=== PATIENT | male | born 1950 | race Caucasian/White ===

== ENCOUNTER 2016-12-20 04:12 | Emergency (ER) | payer BC, OTHER ==
[2016-12-20 04:23] VITALS: BP 148/82; PULSE 93; TEMP 97.8; BMI 30.4
--- NOTE | 2016-12-20 04:43 | PDOC ---
History of Present Illness - General History Source: Patient, Spouse <Amari Collier - Last Filed: 12/20/16 05:08> - General History Source: Patient, Spouse Exam Limitations: Intoxication - History of Present Illness Initial Comments: 12/20/16 04:51 The patient is a 66 year old male, with no significant past medical history, who presents to the emergency department s/p falling out of bed earlier this evening. As per , the patient had a multiple drinks this evening and went to bed inebriated. The reports the patient was sleeping, fell out of bed, and hit his head. The patient himself does not report any head trauma or LOC. The patient denies any fever, chills, cough, headache, or dizziness. The patient denies any nausea, vomiting, diarrhea, constipation, or changes in urinary output. The patient denies any chest pain, diaphoresis, palpitations, or shortness of breath. Allergies: None reported. Past Surgical History: None reported. Social History: ETOH abuse. Non-smoker. Denies drug use. <Guevara Martinez - Last Filed: 12/20/16 05:14> - General Chief Complaint: Injury Stated Complaint: INTOX Time Seen by Provider: 12/20/16 04:42 Past History - Surgical History Cholecystectomy: Yes - Psycho/Social/Smoking Cessation Hx Suicidal Ideation: No Smoking History: Unknown if ever smoked Information on smoking cessation initiated: No Hx Alcohol Use: Yes Drug/Substance Use Hx: No <Amari Collier - Last Filed: 12/20/16 05:08> <Guevara Martinez - Last Filed: 12/20/16 05:14> - Past Medical History Allergies/Adverse Reactions: Allergies Allergy/AdvReac Type Severity Reaction Status Date / Time No Known Allergies Allergy Verified 12/20/16 04:21 Home Medications: Ambulatory Orders Benzonatate [Tessalon Pearls -] 100 mg PO TID 12/20/16 Hydrochlorothiazide [Hctz -] 25 mg PO DAILY 12/20/16 Review of Systems - Review of Systems Able to Perform ROS?: Yes Comments:: 12/20/16 04:51 CONSTITUTIONAL: Present:+ETOH intoxication Absent: fever, no chills, no fatigue EYES: Absent: visual changes ENT: Absent: ear pain, no sore throat CARDIOVASCULAR: Absent: chest pain, no palpitations RESPIRATORY: Absent: cough, no SOB GI: Absent: abdominal pain, no nausea, no vomiting, no constipation, no diarrhea GENITOURINARY: Absent: dysuria, no frequency, no hematuria MUSKULOSKELETAL: Absent: back pain, no arthralgia, no myalgia SKIN: Absent: rash NEURO: Absent: headache <Guevara Martinez - Last Filed: 12/20/16 05:14> *Physical Exam - Vital Signs Last Vital Signs Temp Pulse Resp BP Pulse Ox 97.8 F 93 H 14 148/82 94 L 12/20/16 04:21 12/20/16 04:21 12/20/16 04:21 12/20/16 04:21 12/20/16 04:21 <Amari Collier - Last Filed: 12/20/16 05:08> - Vital Signs Last Vital Signs Temp Pulse Resp BP Pulse Ox 97.8 F 93 H 14 148/82 94 L 12/20/16 04:21 12/20/16 04:21 12/20/16 04:21 12/20/16 04:21 12/20/16 04:21 - Physical Exam Comments: 12/20/16 04:53 GENERAL: Well-appearing, well-nourished. No apparent distress. Inebriated. HEENT: Normocephalic, atraumatic. PERRL, EOM intact. CARDIOVASCULAR: Normal S1, S2. Regular rate and rhythm. PULMONARY: Clear to auscultation bilaterally. ABDOMEN: Soft, non-distended, non-tender. EXTREMITIES: Normal ROM in all four extremities. No gross deformities. SKIN: Warm, dry. No rash NEUROLOGICAL: No focal neurological deficits. <Guevara Martinez - Last Filed: 12/20/16 05:14> ED Treatment Course - RADIOLOGY Radiology Studies Ordered: Category Date Time Status HEAD CT WITHOUT CONTRAST [CT] Stat CT Scan 12/20/16 04:41 Ordered <Amari Collier - Last Filed: 12/20/16 05:08> - RADIOLOGY Radiograph Interpretation: 12/20/16 05:13 EXAM: Head CT INTERPRETED BY: Dr. Sanabria REVIEWED BY: Dr. Collier IMPRESSION: No evidence of acute pathology. <Guevara Martinez - Last Filed: 12/20/16 05:14> Medical Decision Making - Medical Decision Making 12/20/16 05:04 Dr. Collier: The scribe's documentation has been prepared under my direction and personally reviewed by me in its entirery. I confirm that the note above accurately reflects all work, treatment, procedures, and medical decision making performed by me. <Amari Collier - Last Filed: 12/20/16 05:08> *DC/Admit/Observation/Transfer - Discharge Dispostion Admit: No <Amari Collier - Last Filed: 12/20/16 05:08> - Attestations Scribe Attestion: 12/20/16 04:54 Documentation prepared by Guevara Martinez, acting as medical insurance coder for Amari Collier DO. <Guevara Martinez - Last Filed: 12/20/16 05:14> Diagnosis at time of Disposition: Closed head injury Qualifiers: Encounter type: initial encounter Qualified Code(s): S09.90XA - Unspecified injury of head, initial encounter - Discharge Dispostion Disposition: HOME Condition at time of disposition: Stable - Patient Instructions Printed Discharge Instructions: DI for Closed Head Injury
== END 2016-12-20 05:15 | disposition home or self-care (01) ==
LOC: JER 04:12
DX: S09.90XA Unspecified injury of head, initial encounter (principal); W06.XXXA Fall from bed, initial encounter; Y93.89 Activity, other specified; Y92.003 Bedroom of unspecified non-institutional (private) residence as the place of occurrence of the external cause
CPT/HCPCS: 70450-TC; 99281-25

== ENCOUNTER 2022-07-07 22:03 | Inpatient (IN) | payer OTHER ==
[2022-07-07] MEDS ORDERED: SODIUM CHLORIDE 2,585 ML IV ONE (22:38)
[2022-07-07] MEDS ORDERED: ACETAMINOPHEN 1000 MG/100 ML BAG IVPB ONE (22:39)
[2022-07-07] MEDS ORDERED: SODIUM CHLORIDE 1,000 ML IV STA (23:17)
[2022-07-07] MEDS ORDERED: ACETAMINOPHEN INJECTION 100 ML IVPB ONE (23:38)
[2022-07-08] LABS: VENOUS BASE EXCESS 2.5 mmol/L (-2-2); VENOUS O2 SATURATION 75.7 % (70-80); VENOUS PCO2 36.4 mmHg (38-52); VENOUS PH 7.47 (7.310-7.410)
[2022-07-08 00:02] LABS: HEMATOCRIT 41.4 % (35.4-49); HEMOGLOBIN 14.2 GM/dL (11.7-16.9); MCH 31.2 pg (25.7-33.7); MCHC 34.2 g/dl (32.0-35.9); MEAN CELL VOLUME 91.1 fl (80-96); PLATELET COUNT 140 10^3/uL (134-434); RBC 4.54 M/mm3 (4.00-5.60); WHITE BLOOD COUNT 6.8 K/mm3 (4.0-10.0)
[2022-07-08 00:22] LABS: ALBUMIN 3.1 g/dl (3.4-5.0); BLOOD UREA NITROGEN 21.7 mg/dL (7-18); CALCIUM 8.1 mg/dL (8.5-10.1)
[2022-07-08 00:25] LABS: CREATININE 1.1 mg/dL (0.55-1.3)
[2022-07-08 00:27] LABS: BILIRUBIN,TOTAL 2.4 mg/dL (0.2-1); INR 1.22 (0.83-1.09); PROTHROMBIN TIME (PATIENT) 14.1 SEC (9.7-13.0); TOT PROT 6.4 g/dl (6.4-8.2)
[2022-07-08 00:29] LABS: ACTIVATED PTT 27.1 SECONDS (25.2-36.5)
[2022-07-08] MEDS ORDERED: VANCOMYCIN/WATER 2 GM/400 ML PREMIX BAG IVPB ONE (00:55)
[2022-07-08] MEDS ORDERED: PIPERACILLIN/TAZOB 4.5 GM 4.5 GM in DEXTROSE 5%-WATER 100 ML IVPB ONE (00:55)
[2022-07-08] MEDS ORDERED: PIPERACILLIN/TAZOB 4.5 GM 4.5 GM/100 ML BAG IVPB ONE ×3 (01:13→14:10)
[2022-07-08 01:32] LABS: ANISOCYTOSIS 2+; MACROCYTOSIS 0; OVALOCYTE 1+; TEAR DROP CELLS 1+; TOXIC GRANULATION 1+
[2022-07-08] MEDS: KCL 10 MEQ IVPB 10 MEQ/100 ML INFUS.BAG IVPB SCH ×3 (05:00→10:00)
[2022-07-08 05:08] LABS: EPI CELLS 17 /uL (0-25.1); HYALINE CASTS 1 /uL (0-3.1); PH,URINE 5.5 (5.0-8.0); URINE APPEARANCE CLEAR; URINE BACTERIA 88 /uL (0-1359); URINE BILIRUBIN 1+ (NEGATIVE); URINE COLOR DK YELLOW; URINE GLUCOSE (UA) NEGATIVE (NEGATIVE); URINE KETONE NEGATIVE (NEGATIVE); URINE LEUK ESTERASE NEGATIVE (NEGATIVE); URINE NITRITE NEGATIVE (NEGATIVE); URINE PROTEIN 2+ (NEGATIVE); URINE RBC 38 /uL (0-23.9); URINE UROBILINOGEN 4.0 E.U/dl mg/dL (0.2-1.0); URINE WBC 28 /uL (0-25.8)
[2022-07-08] MEDS ORDERED: SODIUM CHLORIDE 0.9% 1000 ML INFUS.BAG IV ONE (05:22)
[2022-07-08] MEDS ORDERED: KCL 10 MEQ IVPB 20 MEQ/200 ML INFUS.BAG IVPB ONE (05:27)
[2022-07-08] MEDS: PIPERACILLIN/TAZOB 4.5 GM 4.5 GM in DEXTROSE 5%-WATER 100 ML IVPB SCH ×2 (10:00→14:09)
[2022-07-08] MEDS ORDERED: DEXTROSE 5%-0.45% SALINE 1,000 ML IV SCH (10:00)
[2022-07-08] MEDS ORDERED: ENOXAPARIN NA (PORCINE) 40 MG/0.4 ML DISP.SYRIN SQ SCH (10:00)
[2022-07-08] MEDS ORDERED: PANTOPRAZOLE SODIUM 40 MG/100 ML BAG IVPB ONE (10:23)
[2022-07-08] MEDS ORDERED: ENOXAPARIN NA (PORCINE) 40 MG/0.4 ML DISP.SYRIN SQ ONE (10:23)
[2022-07-08] MEDS: DEXTROSE 5%-NORMAL SALINE 1,000 ML IV SCH (10:57)
[2022-07-08] MEDS: PANTOPRAZOLE 40 MG TABLET PO SCH (10:57)
[2022-07-08 12:46] LABS: BASO % 0.1 % (0-2.0); EOS % 0.1 % (0-4.5); HEMATOCRIT 39.3 % (35.4-49); HEMOGLOBIN 13.1 GM/dL (11.7-16.9); LYMPH % 4.3 % (8-40); MCH 31.1 pg (25.7-33.7); MCHC 33.3 g/dl (32.0-35.9); MEAN CELL VOLUME 93.4 fl (80-96); MEAN PLT VOLUME 8.6 fl (7.5-11.1); MONO % 9.8 % (3.8-10.2); NEUT % 85.7 % (42.8-82.8); PLATELET COUNT 132 10^3/uL (134-434); RBC 4.21 M/mm3 (4.00-5.60); RDW 12.8 % (11.9-15.9); WHITE BLOOD COUNT 9.6 K/mm3 (4.0-10.0)
[2022-07-08 12:49] LABS: INR 1.36 (0.83-1.09); PROTHROMBIN TIME (PATIENT) 15.7 SEC (9.7-13.0)
[2022-07-08 13:07] LABS: ALBUMIN 2.7 g/dl (3.4-5.0); BLOOD UREA NITROGEN 17.2 mg/dL (7-18); CALCIUM 7.6 mg/dL (8.5-10.1)
[2022-07-08 13:09] LABS: BILIRUBIN,TOTAL 2.9 mg/dL (0.2-1); TOT PROT 5.7 g/dl (6.4-8.2)
[2022-07-08] MEDS: INSULIN SLIDING SCALE (NOVOLOG) 1 VIAL SQ SCH ×2 (17:59→21:33)
[2022-07-08] MEDS: PIPERACILLIN/TAZOB 3.375 GM 3.375 GM in DEXTROSE 5%-WATER - 50 ML IVPB SCH (21:17)
[2022-07-09 01:37] VITALS: BMI 28.7
[2022-07-09] MEDS: PIPERACILLIN/TAZOB 3.375 GM 3.375 GM in DEXTROSE 5%-WATER - 50 ML IVPB SCH ×4 (02:27→20:56)
[2022-07-09] MEDS: DEXTROSE 5%-NORMAL SALINE 1,000 ML IV SCH (02:27)
[2022-07-09 07:48] LABS: BASO % 0.2 % (0-2.0); EOS % 0.4 % (0-4.5); HEMATOCRIT 37.9 % (35.4-49); HEMOGLOBIN 12.9 GM/dL (11.7-16.9); LYMPH % 7.4 % (8-40); MCH 31.3 pg (25.7-33.7); MCHC 33.9 g/dl (32.0-35.9); MEAN CELL VOLUME 92.3 fl (80-96); MEAN PLT VOLUME 8.6 fl (7.5-11.1); MONO % 10.4 % (3.8-10.2); NEUT % 81.6 % (42.8-82.8); PLATELET COUNT 146 10^3/uL (134-434); RBC 4.11 M/mm3 (4.00-5.60); RDW 12.9 % (11.9-15.9); WHITE BLOOD COUNT 7.5 K/mm3 (4.0-10.0)
[2022-07-09] MEDS ORDERED: PHYTONADIONE 10 MG/1 ML AMP IVPB ONE (07:54)
[2022-07-09 08:09] LABS: ALBUMIN 2.5 g/dl (3.4-5.0)
[2022-07-09 08:14] LABS: BILIRUBIN,TOTAL 3.2 mg/dL (0.2-1); TOT PROT 5.3 g/dl (6.4-8.2)
[2022-07-09 08:16] LABS: CALCIUM 7.8 mg/dL (8.5-10.1)
[2022-07-09 08:17] LABS: ALBUMIN 2.5 g/dl (3.4-5.0); BLOOD UREA NITROGEN 10.5 mg/dL (7-18); MAGNESIUM 2.3 mg/dL (1.8-2.4)
[2022-07-09 08:20] LABS: CREATININE 0.8 mg/dL (0.55-1.3); PHOSPHOROUS 2.6 mg/dL (2.5-4.9)
[2022-07-09 08:21] LABS: TOT PROT 5.3 g/dl (6.4-8.2)
[2022-07-09 08:22] LABS: BILIRUBIN,TOTAL 3.2 mg/dL (0.2-1)
[2022-07-09 08:25] LABS: BILIRUBIN,DIRECT 2.5 mg/dL (0.0-0.2)
[2022-07-09] MEDS ORDERED: PIPERACILLIN/TAZOB 4.5 GM 4.5 GM in DEXTROSE 5%-WATER 100 ML IVPB SCH (09:00)
[2022-07-09] MEDS: INSULIN SLIDING SCALE (NOVOLOG) 1 VIAL SQ SCH ×4 (09:04→20:59)
[2022-07-09] MEDS ORDERED: IOHEXOL 300 MG/ML INFUS..BTL IV ONE (09:51)
[2022-07-09] MEDS: PANTOPRAZOLE 40 MG TABLET PO SCH (11:37)
[2022-07-09] MEDS: LACTATED RINGERS SOLUTION 1,000 ML/1,000 ML INFUS.BAG IV SCH ×2 (13:33→22:53)
[2022-07-09] MEDS ORDERED: HEPARIN NA (PORCINE) 5,000 UNITS/ML 1ML VIAL SQ SCH (22:00)
[2022-07-10] MEDS: PIPERACILLIN/TAZOB 3.375 GM 3.375 GM in DEXTROSE 5%-WATER - 50 ML IVPB SCH ×4 (02:23→21:09)
[2022-07-10 08:33] LABS: BASO % 0.4 % (0-2.0); EOS % 0.8 % (0-4.5); HEMATOCRIT 38.7 % (35.4-49); HEMOGLOBIN 12.9 GM/dL (11.7-16.9); LYMPH % 10.5 % (8-40); MCHC 33.4 g/dl (32.0-35.9); MEAN CELL VOLUME 92.7 fl (80-96); MEAN PLT VOLUME 8.3 fl (7.5-11.1); MONO % 10.7 % (3.8-10.2); NEUT % 77.6 % (42.8-82.8); PLATELET COUNT 136 10^3/uL (134-434); RBC 4.18 M/mm3 (4.00-5.60); WHITE BLOOD COUNT 4.8 K/mm3 (4.0-10.0)
[2022-07-10 08:35] LABS: INR 1.19 (0.83-1.09); PROTHROMBIN TIME (PATIENT) 13.7 SEC (9.7-13.0)
[2022-07-10 08:53] LABS: CREATININE 0.8 mg/dL (0.55-1.3); MAGNESIUM 2.1 mg/dL (1.8-2.4); TOT PROT 5.3 g/dl (6.4-8.2)
[2022-07-10 08:57] LABS: ALBUMIN 2.5 g/dl (3.4-5.0); BILIRUBIN,DIRECT 2.6 mg/dL (0.0-0.2); BLOOD UREA NITROGEN 7.7 mg/dL (7-18)
[2022-07-10] MEDS ORDERED: LACTATED RINGERS SOLUTION 1,000 ML/1,000 ML INFUS.BAG IV SCH (08:57)
[2022-07-10 08:59] LABS: BILIRUBIN,TOTAL 3.3 mg/dL (0.2-1)
[2022-07-10] MEDS: URSODIOL 300 MG CAPSULE PO SCH ×2 (10:11→21:07)
[2022-07-10] MEDS: PANTOPRAZOLE 40 MG TABLET PO SCH (10:12)
[2022-07-10] MEDS: INSULIN SLIDING SCALE (NOVOLOG) 1 VIAL SQ SCH ×4 (10:17→21:43)
[2022-07-10] MEDS ORDERED: POTASSIUM CHLORIDE TABS 20 MEQ TABLET.ER (FP) PO ONE ×2 (15:53→21:00)
[2022-07-11] MEDS: PIPERACILLIN/TAZOB 3.375 GM 3.375 GM in DEXTROSE 5%-WATER - 50 ML IVPB SCH ×4 (02:46→23:33)
[2022-07-11 08:54] LABS: BASO % 0.7 % (0-2.0); EOS % 2.4 % (0-4.5); HEMOGLOBIN 13.5 GM/dL (11.7-16.9); LYMPH % 15.5 % (8-40); MCH 31.3 pg (25.7-33.7); MCHC 33.8 g/dl (32.0-35.9); MEAN CELL VOLUME 92.8 fl (80-96); MEAN PLT VOLUME 7.9 fl (7.5-11.1); MONO % 11.3 % (3.8-10.2); NEUT % 70.1 % (42.8-82.8); PLATELET COUNT 195 10^3/uL (134-434); RBC 4.31 M/mm3 (4.00-5.60); RDW 13.3 % (11.9-15.9); WHITE BLOOD COUNT 4.3 K/mm3 (4.0-10.0)
[2022-07-11 09:01] LABS: INR 1.17 (0.83-1.09); PROTHROMBIN TIME (PATIENT) 13.5 SEC (9.7-13.0)
[2022-07-11 09:22] LABS: ALBUMIN 2.8 g/dl (3.4-5.0); CALCIUM 8.6 mg/dL (8.5-10.1)
[2022-07-11 09:23] LABS: BLOOD UREA NITROGEN 6.4 mg/dL (7-18)
[2022-07-11 09:25] LABS: BILIRUBIN,DIRECT 2.3 mg/dL (0.0-0.2); CREATININE 0.8 mg/dL (0.55-1.3)
[2022-07-11 09:27] LABS: BILIRUBIN,TOTAL 2.8 mg/dL (0.2-1); TOT PROT 6.4 g/dl (6.4-8.2)
[2022-07-11] MEDS: PANTOPRAZOLE 40 MG TABLET PO SCH (09:48)
[2022-07-11] MEDS: URSODIOL 300 MG CAPSULE PO SCH ×2 (09:48→21:02)
[2022-07-11 10:55] LABS: ANISOCYTOSIS 0; HELMET CELLS 0; HOWELL-JOLLY BODIES 0; MACROCYTOSIS 0; OVALOCYTE 0; ROULEAU 0; SICKELED CELLS 0; TARGET CELLS 0; TEAR DROP CELLS 0; TOXIC GRANULATION 0
[2022-07-11] MEDS: INSULIN SLIDING SCALE (NOVOLOG) 1 VIAL SQ SCH ×4 (13:16→21:02)
[2022-07-11] MEDS: LISINOPRIL 5 MG TABLET PO SCH (18:30)
[2022-07-11 22:51] VITALS: RESP 18
[2022-07-12] MEDS ORDERED: PIPERACILLIN/TAZOB 3.375 GM 3.375 GM in DEXTROSE 5%-WATER - 50 ML IVPB SCH (00:30)
[2022-07-12] MEDS: PIPERACILLIN/TAZOB 3.375 GM 3.375 GM in DEXTROSE 5%-WATER - 50 ML IVPB SCH ×2 (02:42→09:24)
[2022-07-12 06:54] LABS: HEMATOCRIT 39.2 % (35.4-49); HEMOGLOBIN 12.9 GM/dL (11.7-16.9); MCH 30.6 pg (25.7-33.7); MEAN CELL VOLUME 92.7 fl (80-96); MEAN PLT VOLUME 8.1 fl (7.5-11.1); PLATELET COUNT 192 10^3/uL (134-434); RBC 4.23 M/mm3 (4.00-5.60); RDW 13.1 % (11.9-15.9); WHITE BLOOD COUNT 3.9 K/mm3 (4.0-10.0)
[2022-07-12 07:09] LABS: ALBUMIN 2.6 g/dl (3.4-5.0); BLOOD UREA NITROGEN 6.8 mg/dL (7-18); CALCIUM 8.6 mg/dL (8.5-10.1); MAGNESIUM 1.8 mg/dL (1.8-2.4)
[2022-07-12 07:12] LABS: CREATININE 0.8 mg/dL (0.55-1.3)
[2022-07-12 07:14] LABS: BILIRUBIN,TOTAL 1.8 mg/dL (0.2-1)
[2022-07-12 08:29] LABS: ANISOCYTOSIS 0; HELMET CELLS 0; HOWELL-JOLLY BODIES 0; MACROCYTOSIS 0; OVALOCYTE 0; ROULEAU 0; SICKELED CELLS 0; TARGET CELLS 0; TEAR DROP CELLS 0; TOXIC GRANULATION 0
[2022-07-12] MEDS: LISINOPRIL 5 MG TABLET PO SCH (09:25)
[2022-07-12] MEDS: PANTOPRAZOLE 40 MG TABLET PO SCH (09:25)
[2022-07-12] MEDS: URSODIOL 300 MG CAPSULE PO SCH (09:25)
[2022-07-12] MEDS: INSULIN SLIDING SCALE (NOVOLOG) 1 VIAL SQ SCH (09:27)
[2022-07-12 11:37] VITALS: BP 146/88; PULSE 71; TEMP 98.5
== END 2022-07-12 13:53 | disposition home or self-care (01) | DRG 871 ==
LOC: JER 22:03 → JERBED 07-08 02:03 → J4S 07-08 18:49
PROVIDERS: ADMIT Hospitalist; ATTEND Nurse Practitioner Family
PROC: BF13YZZ Fluoroscopy of Gallbladder and Bile Ducts using Other Contrast (ICD-10-PCS; 2022-07-09)
PROC: 0FC98ZZ Extirpation of Matter from Common Bile Duct, Via Natural or Artificial Opening Endoscopic (ICD-10-PCS; principal; 2022-07-09 09:30)
DX: A41.9 Sepsis, unspecified organism (principal); K83.1 Obstruction of bile duct; K85.90 Acute pancreatitis without necrosis or infection, unspecified; K80.31 Calculus of bile duct with cholangitis, unspecified, with obstruction; I47.2 Ventricular tachycardia; K80.30 Calculus of bile duct with cholangitis, unspecified, without obstruction; K83.09 Other cholangitis; E87.1 Hypo-osmolality and hyponatremia; I10 Essential (primary) hypertension; E11.9 Type 2 diabetes mellitus without complications; K21.9 Gastro-esophageal reflux disease without esophagitis; R10.9 Unspecified abdominal pain; E87.6 Hypokalemia; R94.5 Abnormal results of liver function studies; R10.31 Right lower quadrant pain; E87.8 Other disorders of electrolyte and fluid balance, not elsewhere classified; K76.0 Fatty (change of) liver, not elsewhere classified
CPT/HCPCS: 0241U-QW; 36415; 71045-TC-FY; 74177-TC; 74181-TC; 76000-TC-FY; 76705-TC; 80048; 80053; 80061; 80076; 81003; 82150; 82247; 82550; 82553; 82803; 82962; 83036; 83605; 83690; 83735; 84100; 84443; 84484; 84702; 85025; 85610; 85730; 86704; 86708; 86803; 86850; 86900; 86901; 87040; 87086; 87340; 87517; 93005; 93010; 93306-TC; 99285-25; J1644; Q9967

== ENCOUNTER 2022-07-20 17:35 | Emergency (ER) | payer OTHER ==
[2022-07-20 17:40] VITALS: RESP 18; TEMP 97; BMI 28.1
[2022-07-20] MEDS ORDERED: SODIUM CHLORIDE 1,000 ML IV STA (18:03)
[2022-07-20 19:31] LABS: BASO % 0.2 % (0-2.0); EOS % 3.9 % (0-4.5); HEMATOCRIT 43.3 % (35.4-49); HEMOGLOBIN 14.7 GM/dL (11.7-16.9); LYMPH % 10.9 % (8-40); MEAN CELL VOLUME 94.1 fl (80-96); MEAN PLT VOLUME 7.7 fl (7.5-11.1); MONO % 7.3 % (3.8-10.2); NEUT % 77.7 % (42.8-82.8); PLATELET COUNT 366 10^3/uL (134-434); RDW 13.7 % (11.9-15.9); WHITE BLOOD COUNT 9.1 K/mm3 (4.0-10.0)
[2022-07-20 19:38] LABS: INR 1.15 (0.83-1.09); PROTHROMBIN TIME (PATIENT) 13.3 SEC (9.7-13.0)
[2022-07-20 19:41] LABS: ACTIVATED PTT 34.8 SECONDS (25.2-36.5)
[2022-07-20] MEDS ORDERED: predniSONE 20 MG TABLET (UD) PO ONE (19:47)
[2022-07-20] MEDS ORDERED: predniSONE 20 MG TABLET (UD) ONE (19:47)
[2022-07-20 19:58] LABS: BLOOD UREA NITROGEN 11.1 mg/dL (7-18); CALCIUM 9.2 mg/dL (8.5-10.1)
[2022-07-20 20:01] LABS: CREATININE 0.9 mg/dL (0.55-1.3)
[2022-07-20 20:03] LABS: BILIRUBIN,TOTAL 1.1 mg/dL (0.2-1); TOT PROT 7.4 g/dl (6.4-8.2)
[2022-07-20 20:05] LABS: ALBUMIN 3.6 g/dl (3.4-5.0)
[2022-07-20 20:21] VITALS: BP 135/70; PULSE 86
[2022-07-21] MEDS ORDERED: predniSONE 20 MG TABLET (UD) PO ONE (19:26)
== END 2022-07-20 20:21 | disposition home or self-care (01) ==
LOC: JERFT 17:35 → JER 17:35 → JERFT 20:21
DX: L30.1 Dyshidrosis [pompholyx] (principal)
CPT/HCPCS: 36415; 80053; 85025; 85610; 85651; 85730; 86140; 87040; 99283-25